=== PATIENT | male | born 1955 | race Caucasian/White ===

== ENCOUNTER 2017-02-15 08:31 | Day surgery (SDC) | payer OTHER ==
--- NOTE | ~2017-02-15 | EGD ---
EGD REPORT [facility] [address] [place] [address] NAME: JUDIE ESPINAL : 57 [place]US : [place] [facility] [place] [id number] AGE: 61 ADM/REG DATE : 02/15/17 MR#: [id number] REPORT SERV DATE: 02/15/17 DICTATED BY: MARQUEZ ALFONSO III DATE: 02/15/17 REPORT STATUS : Draft [facility]ANS[facility]IB[facility] BY: [facility] DATE: 02/15/17 [facility] Patient Name: Judie Espinal Date of : 1955 Attending MD: MARQUEZ ALFONSO III, MD Procedure Date No Time: 02/15/2017 Procedure: Colonoscopy Indications: Screening for colorectal malignant neoplasm, Incidental - Chronic diarrhea Referring MD: Arsiteo ROGERS II Medicines: Propofol per Anesthesia, Ketamine per Anesthesia Complications: No immediate complications. Procedure: Pre-Anesthesia Assessment: - ASA Grade Assessment: III - A patient with severe systemic disease. After I obtained informed consent, the scope was passed under direct vision. Throughout the procedure, the patient's blood pressure, pulse, and oxygen saturations were monitored continuously. The PCF [id number] was introduced through the anus and advanced to the cecum, identified by appendiceal orifice and ileocecal valve. The colonoscopy was performed with ease. The patient tolerated the procedure well. The quality of the bowel preparation was good. Findings: A sessile polyp was found in the ascending colon. The polyp was 5 to 13 mm in size. The polyp was removed with a hot snare. Resection and retrieval were complete. Biopsies were taken with a cold forceps from the entire colon for evaluation of microscopic colitis. Small-mouthed diverticula were found in the sigmoid colon. Impression: - One 5 to 13 mm polyp in the ascending colon. Resected and retrieved. - Diverticulosis in the sigmoid colon. Recommendation: - Patient has a contact number available for emergencies. The signs and symptoms of potential delayed complications were discussed with the patient. Return to normal activities tomorrow. Written discharge instructions were provided to the patient. - Discharge patient to home. - Return to previous diet. - Continue present medications. EGD REPORT [address] [address] NAME: JUDIE ESPINAL : [birth year] STATUS : REG [facility]#: [id number] AGE: 61 ADM/REG DATE : 02/15/17 MR#: [id number] REPORT SERV DATE: 02/15/17 DICTATED BY: MARQUEZ ALFONSO III DATE: 02/15/17 REPORT STATUS : Draft TRANSCRIBED BY: [employer] DATE: 02/15/17 - Await pathology results. Procedure Code(s): --- Professional --- 69861, Colonoscopy, flexible, proximal to splenic flexure; with removal of tumor(s), polyp(s), or other lesion(s) by snare technique 09510, 59, Colonoscopy, flexible, proximal to splenic flexure; with biopsy, single or multiple Diagnosis Code(s): --- Professional --- D12.2, Benign neoplasm of ascending colon K57.30, Diverticulosis of large intestine without perforation or abscess without bleeding Z12.11, Encounter for screening for malignant neoplasm of colon CPT copyright 2013 [employer]. All rights reserved. The codes documented in this report are preliminary and upon medical insurance coder review may be revised to meet current compliance requirements. MARQUEZ ALFONSO III, MD 02/15/2017 10:31 AM This report has been signed electronically. Number of Addenda: 0 Note Initiated On: 02/15/2017 9:56 AM Scope Withdrawal Time 0 hours 11 minutes 16 seconds [address] [phone]
[~2017-02-15 08:31] MED LIST: ASAB PO; COLCH6 PO; COUMADIN3 MG PO; DIOVAN320 MG PO; GLUCPH PO; IMDUR60 PO; IRON PO; K-TABS10 MEQ PO; L20 PO; LAN125 PO; LIPITOR40 PO; LOM PO; LOP25 PO; MAGNESIUM PO; NEUR600 PO; NORV10 PO; SYN125 PO; ULTRAM50 PO
[2017-02-15 08:58] LABS: INTERNATIONAL NORMAL RATI 1.3 UNITS (-); PROTIME (NOT ORD) 15.8 SEC (12.0-14.5)
== END 2017-02-15 23:59 | disposition home or self-care (01) ==
LOC: DMU 08:31
PROVIDERS: Anesthesiology; Internal Medicine Gastroenterology
PROC: 0DBK8ZZ Excision of Ascending Colon, Via Natural or Artificial Opening Endoscopic (ICD-10-PCS; principal; 2017-02-15 10:00)
DX: Z12.11 Encounter for screening for malignant neoplasm of colon (principal); K52.831 Collagenous colitis; D12.2 Benign neoplasm of ascending colon; K57.30 Diverticulosis of large intestine without perforation or abscess without bleeding; I48.91 Unspecified atrial fibrillation; E11.9 Type 2 diabetes mellitus without complications; E66.9 Obesity, unspecified; Z87.442 Personal history of urinary calculi; Z88.8 Allergy status to other drugs, medicaments and biological substances; Z79.899 Other long term (current) drug therapy; Z79.01 Long term (current) use of anticoagulants
CPT/HCPCS: 82962; 85610; 87045; 87046; 87046-59; 87328; 87329; 87493; 87493-59; 87899; 87899-59; 88305; 89055; 89125; J2250